=== PATIENT | female | born 1965 | race Caucasian/White ===

== ENCOUNTER 2018-06-05 11:35 | Emergency (ER) | payer BC, MEDICAID, OTHER ==
--- NOTE | 2018-06-05 12:21 | ED Physician Documentation ---
History of Present Illness - Stated complaint Stated Complaint: BILAT KNEE PX - Chief complaint Chief Complaint: Ext Problem - Additonal information Additional information: 53-year-old female presents the emergency department for evaluation of the left knee, ankle and foot pain. The patient fell one week ago striking her knee and twisting her ankle. The patient has been ambulatory but reports continuous pain. The patient denies injury to her head, neck, torso or upper extremities. Symptoms are described as mild. No other associated symptoms. Review of Systems Constitutional: denies: Fever Ears: denies: Ear pain Cardiac: denies: Chest pain / pressure GI: denies: Abdominal Pain Musculoskeletal: reports: Extremity pain, Joint pain. denies: Neck pain, Back pain Neurologic: denies: Headache, Head injury Immunocompromised: denies: Chemotherapy PD PAST MEDICAL HISTORY - Past Medical History Past Medical History: No - Past Surgical History Past Surgical History: Yes Ortho: Knee replacement - Allergies Allergies/Adverse Reactions: Allergies Allergy/AdvReac Type Severity Reaction Status Date / Time Penicillins Allergy Hives Verified 06/05/18 11:44 - Social History Does the pt smoke?: No Smoking Status: Never smoker Does the pt drink ETOH?: No - Immunizations Immunizations are current?: Yes PD ED PE NORMAL - General General: Alert and oriented X 3, No acute distress - HEENT HEENT: Atraumatic, PERRL, EOMI, Ears normal - Cardiac Cardiac: RRR - Respiratory Respiratory: No respiratory distress - Extremities Extremities: No deformity, Normal ROM s pain. No: No tenderness to palpate (The patient has tenderness to palpation of the left knee, there is an abrasion over the anterior portion of the knee, the patient has full active range of motion of the knee, no crepitus and no ligamentous instability. The patient has full active range of motion of the ankle and foot, there is tenderness to palpation, no crepitus. There is normal cap refill and a normal dorsalis pedis pulse) - Neuro Neuro: Alert and oriented X 3, Normal speech - Psych Psych: Normal affect Results - Vitals Vitals: Vital Signs - 24 hr 06/05/18 06/05/18 11:41 13:52 Temperature 35.7 C L Heart Rate 84 68 Respiratory 20 16 Rate Blood Pressure 133/79 H 122/78 O2 Saturation 100 98 - Rads (name of study) XR Knee/foot/ankle Radiology: Final report received (IMPRESSION: Mild degenerative joint disease.Slight lateral patellar subluxation. No acute abnormality. IMPRESSION: No acute osseous abnormality. Mild ankle swelling suggested) PD MEDICAL DECISION MAKING - ED course ED course: The patient has what appears to be a chronic subluxation of her kneecap, on discussing things further with the patient she had an issue with her right knee as well. The patient x-rays show no evidence of acute fracture. I discussed the findings with the patient who understands and agrees. I discussed follow-up with orthopedics for the chronic patellar subluxation. The patient agrees and understands. I discussed warning signs and recommended returning to the emergency department immediately for any worsening or any concerns. - Sepsis Event Vital Signs: Vital Signs - 24 hr 06/05/18 06/05/18 11:41 13:52 Temperature 35.7 C L Heart Rate 84 68 Respiratory 20 16 Rate Blood Pressure 133/79 H 122/78 O2 Saturation 100 98 Departure - Departure Disposition: 01 Home, Self Care Clinical Impression: Knee contusion Qualifiers: Encounter type: initial encounter Laterality: unspecified laterality Qualified Code(s): S80.00XA - Contusion of unspecified knee, initial encounter Ankle strain Qualifiers: Encounter type: initial encounter Laterality: unspecified laterality Qualified Code(s): S96.919A - Strain of unspecified muscle and tendon at ankle and foot level, unspecified foot, initial encounter Patellar subluxation Qualifiers: Encounter type: initial encounter Laterality: unspecified laterality Qualified Code(s): S83.003A - Unspecified subluxation of unspecified patella, initial encounter Condition: Good Instructions: ED Contusion Lower Extr Ch Follow-Up: Wilton Suazo MD [Provider Admit Priv/Credential] - (call to schedule a follow up appointment ) Comments: Please return to the emergency department immediately for worsening symptoms or any concerns. Please follow-up With orthopedic surgery for evaluation of your chronic patellar dislocation
[2018-06-05] MEDS ORDERED: TETANUS/DIPHTHERIA/PERTUSSIS 0.5 ML SYRINGE IM ONE (12:31)
--- NOTE | 2018-06-05 12:38 | XRAY Report ---
Reason: fall 1 week ago. Procedure Date: 06/05/2018 Accession Number: [id number] / [id number] Procedure: XR - Knee 3 View LT CPT Code: FULL RESULT: EXAM: LEFT KNEE RADIOGRAPHY 3 VIEWS EXAM DATE: 06/05/2018. CLINICAL HISTORY: Fell 1 week ago. COMPARISON: None. TECHNIQUE: AP, lateral and sunrise views. FINDINGS: Bones: No fracture or other acute abnormality. Small tibial spine osteophytes. Small posterior patellar osteophyte. Joints: Mild lateral patellar subluxation. Medial and lateral joint appeared normal. No effusion. Soft Tissues: Normal. No soft tissue swelling. IMPRESSION: Mild degenerative joint disease. Slight lateral patellar subluxation. No acute abnormality. RADIA
--- NOTE | 2018-06-05 13:14 | XRAY Report ---
Reason: ankle pain Procedure Date: 06/05/2018 Accession Number: [id number] / [id number] Procedure: XR - Ankle 3 View LT CPT Code: FULL RESULT: EXAM: LEFT ANKLE AND LEFT FOOT RADIOGRAPHY EXAM DATE: 06/05/2018 12:45 PM. CLINICAL HISTORY: Left ankle and foot pain. COMPARISON: FOOT 3 VIEW LT 06/05/2018 12:41 PM. TECHNIQUE: 3 views left ankle and 3 views left foot. FINDINGS: Bones: Normal. No fractures or bone lesions. Joints: Alignment is preserved. Some mild degenerative changes are seen at the proximal first intermetatarsal space. The remainder of the joint spaces appear intact. Soft Tissues: Mild soft tissue swelling is seen in the ankle region. No radiodense soft tissue abnormality is identified. IMPRESSION: No acute osseous abnormality. Mild ankle swelling suggested. RADIA
--- NOTE | 2018-06-05 13:14 | XRAY Report ---
Reason: foot pain Procedure Date: 06/05/2018 Accession Number: [id number] / [id number] Procedure: XR - Foot 3 View LT CPT Code: FULL RESULT: EXAM: LEFT ANKLE AND LEFT FOOT RADIOGRAPHY EXAM DATE: 06/05/2018 12:45 PM. CLINICAL HISTORY: Left ankle and foot pain. COMPARISON: FOOT 3 VIEW LT 06/05/2018 12:41 PM. TECHNIQUE: 3 views left ankle and 3 views left foot. FINDINGS: Bones: Normal. No fractures or bone lesions. Joints: Alignment is preserved. Some mild degenerative changes are seen at the proximal first intermetatarsal space. The remainder of the joint spaces appear intact. Soft Tissues: Mild soft tissue swelling is seen in the ankle region. No radiodense soft tissue abnormality is identified. IMPRESSION: No acute osseous abnormality. Mild ankle swelling suggested. RADIA
[2018-06-05 13:53] VITALS: BP 122/78
== END 2018-06-05 13:53 | disposition home or self-care (01) ==
LOC: ED 11:35
DX: S83.002A Unspecified subluxation of left patella, initial encounter (principal); S96.912A Strain of unspecified muscle and tendon at ankle and foot level, left foot, initial encounter; S80.00XA Contusion of unspecified knee, initial encounter; W18.30XA Fall on same level, unspecified, initial encounter; X50.1XXA Overexertion from prolonged static or awkward postures, initial encounter; W22.8XXA Striking against or struck by other objects, initial encounter; Y92.524 Gas station as the place of occurrence of the external cause
CPT/HCPCS: 90471; 99283

== ENCOUNTER 2018-08-28 14:46 | Outpatient (CLI) | payer MEDICAID ==
--- NOTE | 2018-09-03 10:44 | Mammography Report ---
Reason: SCREENING MAMMO Procedure Date: 08/28/2018 Accession Number: [id number] / [id number] Procedure: MGN - Screening Mammo Dig Bilat CPT Code: FULL RESULT: EXAM: Screening Mammo Dig Bilat DATE: 08/28/2018 3:12 PM CLINICAL HISTORY: Screening. No reported personal history of breast cancer. Family history breast cancer in mother at age 70. TECHNIQUE: Bilateral CC and MLO views were obtained. COMPARISON: Prior mammograms have been purged; new baseline mammogram. FINDINGS: The breasts demonstrate heterogeneously dense fibroglandular parenchyma bilaterally. Right breast: There are 2 contiguous masses of the posterior 3:00 breast with intervening asymmetry 10.5 cm from the nipple. The anterior portion mass shows irregular shape with spiculated margins; the posterior mass is oval in shape, but incompletely included. Total span of visible masses 45 x 22 x 13 mm. There are no suspicious calcifications. Left breast: There are no suspicious masses, calcifications or areas of distortion. IMPRESSION: Incomplete examination RECOMMENDATION: Additional imaging including ultrasound of the right breast and axilla. BI-RADS CATEGORY 0: Incomplete examination STANDARD QUALIFYING STATEMENTS: 1. This examination was reviewed with the aid of Computer-Aided Detection (CAD). 2. A negative or benign imaging report should not preclude biopsy if clinically suspicious findings are present. 3. Dense breasts may obscure an underlying neoplasm. 4. This examination was reviewed without the aid of 3D breast imaging (tomosynthesis).
== END 2018-08-28 14:47 | disposition home or self-care (01) ==
LOC: DI.N 14:46
PROVIDERS: ATTEND Physician Assistant Medical
DX: Z12.31 Encounter for screening mammogram for malignant neoplasm of breast (principal); Z80.3 Family history of malignant neoplasm of breast
CPT/HCPCS: 77067

== ENCOUNTER 2018-12-05 08:28 | Outpatient (CLI) | payer MEDICAID ==
--- NOTE | 2018-12-05 13:13 | Mammography Report ---
Reason: ABNORMAL MAMMOGRAM,RIGHT BREAST Procedure Date: 12/05/2018 Accession Number: [id number] / [id number] Procedure: DC - Diag Special Views Dig RT CPT Code: FULL RESULT: EXAM: Diag Special Views Dig RT, Breast Unilateral Limited DATE: 12/05/2018 9:31 AM CLINICAL HISTORY: Recall from recent screening exam for right breast mass. Family history breast cancer mother age 72. TECHNIQUE: Right CC and MLO spot compression. 90 degree lateral 2-D/3-D. Real-time ultrasound was also performed. COMPARISON: Baseline screening 08/28/2018 FINDINGS: The breast demonstrates scattered fibroglandular densities. Right breast: Additional images confirm two adjacent high density masses in the posterior upper inner right breast at approximately 2:00 - 3:00 11 cm from the nipple. There are no associated calcifications. The anterior mass shows irregular contour with spiculated margins and measures 22 x 12 x 16 mm. The posterior mass is more oval in contour and cannot be fully included on mammographic images. There is a thin bridge of tissue which connects the 2 masses; total extent of both masses mammographically is 37 x 12 x 16 mm (AP x SI x ML). Targeted ultrasound demonstrates 2 adjacent hypoechoic non-circumscribed masses corresponding to the mammographic masses at 2:00, 10 cm from the nipple. Masses are by 5 mm sonographically. Maximal edge to edge extent at ultrasound is 39 mm; individual masses measure 18 and 16 mm by US. Survey of the axilla shows only normal morphology lymph nodes. IMPRESSION: Right breast: 2 adjacent/contiguous high suspicion masses posterior medial right breast as described. Highly suspicious of malignancy. BI-RADS Category 5. Ultrasound-guided needle biopsy and marker placement is recommended. Biopsy scheduling was facilitated the time of this imaging appointment. BI-RADS CATEGORY 5: Highly suggestive of malignancy. STANDARD QUALIFYING STATEMENTS: 1. This examination was not reviewed with the aid of Computer-Aided Detection (CAD). 2. A negative or benign imaging report should not preclude biopsy if clinically suspicious findings are present. 3. Dense breasts may obscure an underlying neoplasm. 4. This examination was reviewed with the aid of 3D breast imaging (tomosynthesis).
== END 2018-12-05 08:29 | disposition home or self-care (01) ==
LOC: DI 08:28
PROVIDERS: ATTEND Physician Assistant Medical
DX: N63.10 Unspecified lump in the right breast, unspecified quadrant (principal); R92.8 Other abnormal and inconclusive findings on diagnostic imaging of breast
CPT/HCPCS: 76642

== ENCOUNTER 2018-12-12 11:44 | Outpatient (CLI) | payer MEDICAID ==
[2018-12-12] MEDS ORDERED: BUPIVACAINE 0.5%-EPI 1:200000 PF 10 ML VIAL ONE (11:55)
[2018-12-12] MEDS ORDERED: BUFFERED LIDOCAINE 10 ML SYRINGE ONE (11:56)
--- NOTE | 2018-12-12 14:25 | Mammography Report ---
Reason: ABN MAMMO - RT BREAST MASS Procedure Date: 12/12/2018 Accession Number: [id number] / [id number] Procedure: DC - Diagnostic Dig RT CPT Code: FULL RESULT: PROCEDURE: Ultrasound-guided needle biopsy right breast mass. CLINICAL DATA: Targeted mass measuring 3.7 cm with irregular margins in the 2 o'clock axis of the right breast. Informed consent was obtained. Using standard aseptic technique, both 1% buffered lidocaine and Sensorcaine were injected into the right breast for local anesthesia. A small agustin was made in the skin with a #11 blade. A 12-gauge [facility] vacuum-assisted device was used to obtain 4 specimens. A specialized biopsy marker clip was placed into the biopsy cavity under ultrasound guidance. The patient was taken to separate mammography machine and a two-view digital mammography was performed to verify the clip placement and any complications. The mammography showed concordant clip placement. The wound was dressed and ice applied. The patient was observed for approximately 15 minutes, then was discharged from diagnostic imaging Department in good condition following instructions on wound care and obtaining biopsy results. The patient is scheduled to receive the biopsy results from the referring physician. The tissue was sent for histologic analysis. IMPRESSION: Ultrasound-guided biopsy of the right breast. AN ADDENDUM WILL BE MADE TO THIS REPORT WHEN PATHOLOGY IS REVIEWED TO ESTABLISH CONCORDANCE.
[2018-12-12] MEDS ORDERED: BUFFERED LIDOCAINE 10 ML SYRINGE IU ONE (17:16)
[2018-12-12] MEDS ORDERED: BUPIVACAINE 0.5%-EPI 1:200000 PF 10 ML VIAL SUBQ ONE (17:16)
--- NOTE | 2018-12-17 11:05 | Ultrasound Report ---
Reason: ABN MAMMO - RT BREAST MASS Procedure Date: 12/12/2018 Accession Number: [id number] / [id number] Procedure: US - Biopsy Breast Core CPT Code: FULL RESULT: Hallett: Shakir Mark Sign-Off: Shakir Mark Reason: ABN MAMMO - RT BREAST MASS Procedure Date: 12/12/2018 Accession Number: [id number] / [id number] Procedure: DC - Diagnostic Dig RT CPT Code: FULL RESULT: PROCEDURE: Ultrasound-guided needle biopsy right breast mass. CLINICAL DATA: Targeted mass measuring 3.7 cm with irregular margins in the 2 o'clock axis of the right breast. Informed consent was obtained. Using standard aseptic technique, both 1% buffered lidocaine and Sensorcaine were injected into the right breast for local anesthesia. A small agustin was made in the skin with a #11 blade. A 12-gauge [employer] vacuum-assisted device was used to obtain 4 specimens. A specialized biopsy marker clip was placed into the biopsy cavity under ultrasound guidance. The patient was taken to separate mammography machine and a two-view digital mammography was performed to verify the clip placement and any complications. The mammography showed concordant clip placement. The wound was dressed and ice applied. The patient was observed for approximately 15 minutes, then was discharged from diagnostic imaging Department in good condition following instructions on wound care and obtaining biopsy results. The patient is scheduled to receive the biopsy results from the referring physician. The tissue was sent for histologic analysis. IMPRESSION: Ultrasound-guided biopsy of the right breast. AN ADDENDUM WILL BE MADE TO THIS REPORT WHEN PATHOLOGY IS REVIEWED TO ESTABLISH CONCORDANCE.
== END 2018-12-12 11:45 | disposition home or self-care (01) ==
LOC: DI 11:44
PROVIDERS: ATTEND Physician Assistant Medical
DX: C50.911 Malignant neoplasm of unspecified site of right female breast (principal); Z17.0 Estrogen receptor positive status [ER+]
CPT/HCPCS: 19083

== ENCOUNTER 2018-12-31 07:44 | Day surgery (SDC) | payer MEDICAID ==
[2018-12-31] MEDS ORDERED: BUFFERED LIDOCAINE 10 ML SYRINGE ONE (09:11)
[2018-12-31] MEDS ORDERED: LACTATED RINGERS 1,000 ML IV ONE ×3 (10:23→17:57)
[2018-12-31] MEDS ORDERED: BUPIVACAINE 0.5% PF 30 ML VIAL ONE (10:32)
--- NOTE | 2018-12-31 13:23 | ANESTHESIA ---
Pre-Anesthesia VS, & Labs - Diagnosis R breast CA/desire foe L mastectomy - Procedure B Mastectomy Simple/ R sentinel node biopsy Vital Signs: Temp Pulse Resp BP Pulse Ox 36.6 C 73 18 149/94 H 97 12/31/18 08:06 12/31/18 08:06 12/31/18 08:06 12/31/18 08:06 12/31/18 08:06 Height 5 ft 9 in Weight (kg) 126.9 kg Body Mass Index 39.9 - NPO >8 hours - Is Patient ?: No Home Medications and Allergies Home Medications: Ambulatory Orders DULoxetine [Cymbalta] 2 mg PO QPM 12/26/18 Zolpidem [Ambien] 5 mg PO HS 12/26/18 DULoxetine [Cymbalta] 2 mg PO QPM 12/26/18 Zolpidem [Ambien] 5 mg PO HS 12/26/18 Allergies/Adverse Reactions: Allergies Allergy/AdvReac Type Severity Reaction Status Date / Time erythromycin base Allergy Hives Verified 12/31/18 08:32 Penicillins Allergy Hives Verified 06/05/18 11:44 vitamins Allergy Nausea Uncoded 12/31/18 08:21 Anes History & Medical History - Anesthetic History Anesthesia Complications: reports: No previous complications Family history of Anesthesia Complications: Denies Family history of Malignant Hyperthermia: Denies - Medical History Cardiovascular: reports: None Pulmonary: reports: None Gastrointestinal: reports: None Urinary: reports: None Musculoskeletal: reports: Osteoarthritis Endocrine/Autoimmune: reports: HyPOthyroidism Skin: reports: None Smoking Status: Never smoker - Surgical History General: Cholecystectomy Gynecologic: section Orthopedic: Arthroscopic surgery Exam General: Alert, Oriented x3, Cooperative Dental: Loose/Frag (#8 missing, several others chipped, broken. (poor dentition)) Mouth Openin Fingerbreadth Neck Mobility: Normal Mallampati classification: II Respiratory: Lungs clear, Normal breath sounds Cardiovascular: Regular rate Neurological: Normal speech Mental/Cognitive Status: Alert/Oriented X3 Cognitive Status: Within normal limits Plan Anesthesia Type: General Consent for Procedure(s) Verified and Reviewed: Yes Code Status: Attempt Resuscitation ASA classification: 2-Mild systemic disease Is this case an emergency?: No
[2018-12-31] MEDS ORDERED: BUPIVACAINE 0.5% PF 30 ML VIAL SUBQ ONE (14:00)
[2018-12-31] MEDS ORDERED: METHYLENE BLUE 0.5% 50 MG/10 ML AMPULE ONE (15:16)
[2018-12-31] MEDS ORDERED: SUCCINYLCHOLINE 200 MG/10 ML VIAL IVP ONE (16:00)
[2018-12-31] MEDS ORDERED: fentaNYL 100 MCG/2 ML VIAL IVP ONE (16:00)
[2018-12-31] MEDS ORDERED: DEXAMETHASONE 4 MG/ML VIAL IVP ONE (16:00)
[2018-12-31] MEDS ORDERED: KETOROLAC 30 MG/ML VIAL IVP ONE (16:00)
[2018-12-31] MEDS ORDERED: ACETAMINOPHEN 1,000 MG/100 ML VIAL IV ONE (16:00)
[2018-12-31] MEDS ORDERED: ONDANSETRON 4 MG/2 ML VIAL IVP ONE (16:00)
[2018-12-31] MEDS ORDERED: MIDAZOLAM 2 MG/2 ML VIAL IVP ONE (16:00)
[2018-12-31] MEDS ORDERED: PROPOFOL 200 MG/20 ML VIAL IVP ONE (16:00)
--- NOTE | 2018-12-31 17:48 | OPERATIVE REPORT ---
Operative Report - General Planned Procedure: LEFT mastectomy (patient preference/desire), RIGHT mastectomy (cancer), RIGHT sentinel lymph node biopsy (axilla) Pre-Op Diagnosis: RIGHT breast cancer Procedure Performed: BILATERAL mastectomy, RIGHT sentinel lymph node biopsy (axilla) Post Op Diagnosis: Same - Procedure Note Primary Surgeon: Vinicius Haas MD Anesthesia Provider: Kendrick Thakkar CRNA Anesthesia Technique: General ET tube, Local (30 mL 1/2% marcaine) IV Fluids (mL): 1,300 Estimated Blood Loss (mL): 50 Drain/Tube Type: Osbaldo drain (19 Fr bilaterally in anterior axillary space coming across chest wall) Complications: None. - Other Other Information/Narrative: OPERATIVE DESCRIPTION/REPORT: After verbal and written informed consent was obtained detailing the risks of infection, bleeding requiring transfusion with its risks, nerve injury, and , and after I met with the patient confirming the surgery and the site of the surgery and after initialing the RIGHT axilla with a surgical marker, the patient was brought to the operative suite and placed supine on the operating table. Great care was taken to avoid pressure points to prevent pressure necrosis or nerve injury. Monitoring devices were applied along with TEDs and pneumatic compressive stockings (to prevent DVT). The patient received preoperative antibiotics for surgical prophylaxis. Kendrick Thakkar CRNA sedated and anesthetized the patient for the entire procedure. The patient was prepped and draped in the usual sterile manner. With the patient draped my initials were clearly visible. A "time in" then confirmed that the patient was identified with 3 identifiers (name, date and medical record number), the history and physical was in the chart, the signed consent confirming the procedure was in the chart, the patient was in the correct position, the aforementioned prophylactic measures were in place or given, we had the correct personnel and equipment to complete the procedure and that anesthesia, surgery and nursing were given an opportunity to express any concerns. With the agreement of everyone in the room, we proceeded with the operation. Great care was taken to ensure that the arms were placed in a relaxed manner away from the body to facilitate exposure and to avoid nerve injury. Prior to starting with the surgery the RIGHT periareolar area was injected with 5 mL of methylene blue subcutaneously in the breast was massaged to get the dye to be absorbed into the lymphatics. I started on the left-hand side is a side did not have the breast cancer. An elliptical incision was made to incorporate the nipple-areolar complex. The skin incision was carried down to the subcutaneous fat, but no further. Using traction and counter traction, the upper flap was dissected from the chest wall, medially to the sternal border, superiorly to the clavicle, laterally to the anterior border of the latissimus dorsi muscle, and superolaterally to the insertion of the pectoralis major muscle. The lower flap was dissected in a similar manner down to the insertion of the pectoralis fascia overlying the fifth rib medially and laterally out to the latissimus dorsi. Bovie electrocautery was used for the majority of the dissection and hemostasis, tying only the large vessels with 2-0 Vicryl. The breast was dissected from the pectoralis muscle beginning medially and progressing laterally, removing the pectoralis fascia entirely. Once the lateral border of the pectoralis major muscle was identified, the pectoralis muscle was retracted medially and the interpectoral fat was removed with the specimen. The specimen was then marked with a short stitch superiorly and a long stitch laterally. This was sent to pathology for evaluation. The wound was then copiously irrigated using warm maine rile water. A Osbaldo drain was inserted through a separate stab incision below and lateral to the initial incision and the drain was directed across the anterior chest wall. The drain was secured to the skin using a 3-0 nylon which was Grant sandaled about the drain. The subcutaneous tissue was approximated using interrupted 2-0 Vicryl sutures. The skin was approximated using a running 4-0 Monocryl subcuticular stitch. The drain was placed to grenade suction. The left hand side was then draped off so that there would be no exposure of the left wound to the right sided dissection. I turned my attention to the right-hand side which is the side with the breast cancer. The right side was dissected in exactly the same manner as the left hand side with the only exception being that posteriorly there was some hard tissue that was growing into the pectoralis major muscle and this was resected separately and sent to pathology separately for evaluation. The breast was marked similarly with a short stitch superiorly and a long stitch laterally. I turned my attention to the dissection of the sentinel lymph node. None of the lymph nodes were blue. Only one lymph node demonstrated significant radioactive activity but this lymph node was not blue. This lymph node was excised and sent for pathologic evaluation. In vivo and ex vivo activity of this lymph node was almost exactly similar. Please refer to the chart for the exact numbers. Extensive evaluation of the patient's axilla failed to reveal any other lymph node that was even remotely close to the initial lymph node in activity. Copious water lavage was used to remove any debris, and meticulous hemostasis was obtained with Bovie electrocautery. Again, a 19 Turkish Osbalod drain was placed in a similar fashion on the side. In a similar manner the right mastectomy incision was closed using 2-0 Vicryl sutures in an interrupted fashion for the subcutaneous tissues and a 4-0 Monocryl running subcuticular stitch to close the skin. Dressings with minimal tape as well as a breast binder were applied. At this point a time out was performed that confirmed that all the counts were correct, the procedure that was performed, the blood loss, the urine output, the IV fluids administered, and the patients condition. Having tolerated the procedure well, the patient was subsequently extubated and taken to recovery room in good and stable condition. [employer] disclaimer: This document was created in part using voice recognition technology. Because of the inherent limitations of the system ([employer] user manual states that the licensee understands that speech recognition is a statistical process and that recognition errors are inherent in the process), occasional same sounding word substitutions and grammatical errors do occur and persist despite proofreading. Please read this document for context.
[2018-12-31] MEDS ORDERED: ONDANSETRON 4 MG/2 ML VIAL IVP PRN (17:52)
[2018-12-31] MEDS ORDERED: HYDROmorphone 0.5 MG/0.5 ML SYRINGE IVP PRN (17:52)
[2018-12-31] MEDS ORDERED: HYDROcod/ACETAM 5/325 MG TABLET PO PRN (17:52)
[2018-12-31] MEDS ORDERED: ACETAMINOPHEN 1,000 MG/100 ML 100 ML IV ONE (18:30)
[2018-12-31] MEDS ORDERED: D5NS W/20 MEQ KCL 1,000 ML IV SCH (21:00)
[2019-01-01 08:20] VITALS: BP 114/49
[2019-01-01] MEDS ORDERED: HYDROcod/ACETAM 5/325 MG TABLET PO PRN (08:41)
[2019-01-01] MEDS ORDERED: DULoxetine 30 MG CAPSULE PO SCH (21:00)
[2019-01-01] MEDS ORDERED: ZOLPIDEM 5 MG TABLET PO SCH (21:00)
== END 2019-01-01 11:00 | disposition home or self-care (01) ==
LOC: DI 07:44 → MS2 19:07 → DI 01-01 11:00
PROVIDERS: ATTEND Surgery
PROC: 0KBH0ZX Excision of Right Thorax Muscle, Open Approach, Diagnostic (ICD-10-PCS; 2018-12-31)
PROC: 0HBV0ZZ Excision of Bilateral Breast, Open Approach (ICD-10-PCS; principal; 2018-12-31 11:00)
PROC: 07B50ZX Excision of Right Axillary Lymphatic, Open Approach, Diagnostic (ICD-10-PCS; 2018-12-31 11:00)
DX: C50.411 Malignant neoplasm of upper-outer quadrant of right female breast (principal); Z17.0 Estrogen receptor positive status [ER+]; C79.89 Secondary malignant neoplasm of other specified sites; Z40.01 Encounter for prophylactic removal of breast; E66.01 Morbid (severe) obesity due to excess calories; Z68.41 Body mass index [BMI] 40.0-44.9, adult; M19.90 Unspecified osteoarthritis, unspecified site
CPT/HCPCS: 19303; 19307; 20205; 78195; A9270; J0131; J0330; J1170; J7120

== ENCOUNTER 2019-02-04 09:24 | Day surgery (SDC) | payer MEDICAID ==
[2019-02-04] MEDS ORDERED: LACTATED RINGERS 1,000 ML IV ONE (10:00)
[2019-02-04] MEDS ORDERED: CEFAZOLIN SODIUM IN 0.9 % NACL 2 GM/100 ML BAG IV ONE (10:14)
--- NOTE | 2019-02-04 10:22 | ANESTHESIA ---
Pre-Anesthesia VS, & Labs - Diagnosis Right pectoralis major implant breast cancer - Procedure Excision of right pectoralis major implant Vital Signs: Temp Pulse Resp BP Pulse Ox 36.6 C 85 18 169/102 H 95 02/04/19 09:30 02/04/19 09:30 02/04/19 09:30 02/04/19 09:30 02/04/19 09:30 Height 5 ft 9 in Weight (kg) 126.4 kg Body Mass Index 41.2 - NPO >8 hours - Is Patient ?: No - Lab Results Lab results reviewed: Yes Home Medications and Allergies DULoxetine [Cymbalta] 30 mg PO BID 12/26/18 Zolpidem [Ambien] 5 mg PO HS 12/26/18 Anastrozole 1 tab PO DAILY 01/21/19 Allergies/Adverse Reactions: Allergies Allergy/AdvReac Type Severity Reaction Status Date / Time erythromycin base Allergy Hives Verified 01/21/19 14:24 Penicillins Allergy Hives Verified 01/21/19 14:24 Anes History & Medical History - Anesthetic History Anesthesia Complications: reports: No previous complications Family history of Anesthesia Complications: Denies Family history of Malignant Hyperthermia: Denies - Medical History Cardiovascular: reports: None Pulmonary: reports: None Gastrointestinal: reports: None Urinary: reports: None Neuro: reports: None Musculoskeletal: reports: Osteoarthritis Endocrine/Autoimmune: reports: HyPOthyroidism Blood Disorders: reports: None Skin: reports: None Smoking Status: Never smoker Psychosocial: reports: No issues indicated - Surgical History General: Cholecystectomy Gynecologic: section Orthopedic: Arthroscopic surgery Exam General: Alert, Cooperative Dental: WNL, Other (missing front right) Mouth Opening: Greater than 4 Fingerbreadths Neck Mobility: Normal Mallampati classification: II Thyromental Distance: greater than 6 cm Respiratory: Lungs clear Cardiovascular: Regular rate Neurological: Normal speech Mental/Cognitive Status: Alert/Oriented X3 Cognitive Status: Within normal limits Plan Anesthesia Type: General Consent for Procedure(s) Verified and Reviewed: Yes Code Status: Attempt Resuscitation ASA classification: 2-Mild systemic disease Is this case an emergency?: No
[2019-02-04] MEDS ORDERED: BUPIVACAINE 0.5% PF 30 ML VIAL INFIL ONE (12:33)
[2019-02-04] MEDS ORDERED: KETOROLAC 30 MG/ML VIAL IVP ONE (13:00)
[2019-02-04] MEDS ORDERED: ONDANSETRON 4 MG/2 ML VIAL IVP ONE (13:00)
[2019-02-04] MEDS ORDERED: PROPOFOL 200 MG/20 ML VIAL IVP ONE (13:00)
[2019-02-04] MEDS ORDERED: DEXAMETHASONE 4 MG/ML VIAL IVP ONE (13:00)
[2019-02-04] MEDS ORDERED: fentaNYL 100 MCG/2 ML VIAL IVP ONE (13:00)
[2019-02-04] MEDS ORDERED: LIDOCAINE-MPF 2% 5 ML VIAL IM ONE (13:00)
[2019-02-04] MEDS ORDERED: MIDAZOLAM 2 MG/2 ML VIAL IVP ONE (13:00)
--- NOTE | 2019-02-04 13:13 | OPERATIVE REPORT ---
Operative Report - General Procedure Date: 02/04/19 Planned Procedure: Excision of breast cancer implant from right pectoralis major muscle Pre-Op Diagnosis: Right pectoralis major muscle breast cancer implant Procedure Performed: Excision of breast cancer implant from right pectoralis major muscle Post Op Diagnosis: Same - Procedure Note Primary Surgeon: Vinicius Haas MD Anesthesia Provider: Aramis Brown CRNA then Kendrick Thakkar CRNA Anesthesia Technique: General LMA, Local (30 mL of half percent Marcaine) IV Fluids (mL): 700 Estimated Blood Loss (mL): 10 Drain/Tube Type: Other (None.) Complications: None. - Other Other Information/Narrative: OPERATIVE DESCRIPTION/REPORT: After verbal and written informed consent was obtained detailing the risks of infection, bleeding requiring transfusion with its risks, nerve injury, and , and after I met with the patient confirming the surgery and the site of the surgery, the patient was brought to the operative suite and placed supine on the operating table. I had initialed the operative site with the cooperation of the patient. Great care was taken to avoid pressure points to prevent pressure necrosis or nerve injury. Monitoring devices were applied along with TEDs and pneumatic compressive stockings (to prevent DVT). The patient received preoperative antibiotics for surgical prophylaxis. Aramis Brown CRNA sedated and anesthetized the patient for the procedure, but towards the end of the procedure Kendrick Thakkar CRNA took over. The patient was prepped and draped in the usual sterile manner. A "time in" then confirmed that the patient was identified with 3 identifiers (name, date and medical record number), the history and physical was in the chart, the signed consent confirming the procedure was in the chart, the patient was in the correct position, the aforementioned prophylactic measures were in place or given, we had the correct personnel and equipment to complete the procedure and that anesthesia, surgery and nursing were given an opportunity to express any concerns. With the agreement of everyone in the room, we proceeded with the operation. The skin incision traced the previous incision for approximately one third of its length. Dissection down to the pectoralis major muscle was performed using Bovie electrocautery. Once the previous pectoralis major biopsy site was identi fied, every attempt was made to get a 1 cm margin around this area. The pectoralis major muscle was excised all the way down to the rib cage. The entire muscle was not excised. Above and below the excision site of the muscle was left intact. Please note that the specimen was marked with a long stitch laterally, a short stitch superiorly, and a double stitch deep. Meticulous hemostasis was obtained using Bovie electrocautery. The subcutaneous tissue were approximated using a 3-0 Vicryl in an interrupted manner, and the skin incision was approximated with 4-0 Monocryl in a subcuticular fashion. The incision and subcutaneous tissues were injected using 30 mL of half percent Marcaine for long-term anesthetic control. The prep was washed off and benzoin and steristrips were placed on the incision. At this point a time out was performed that confirmed that all the counts were correct, the procedure that was performed, the blood loss, the urine output, the IV fluids administered, and the patients condition. Dressings were applied. Having tolerated the procedure well, the patient was subsequently extubated and taken to recovery room in good and stable condition. Dragon disclaimer: This document was created in part using voice recognition technology. Because of the inherent limitations of the system ([employer] Dict[employer] user manual states that the licensee understands that speech recognition is a statistical process and that recognition errors are inherent in the process), occasional same sounding word substitutions and grammatical errors do occur and persist despite proofreading. Please read this document for context.
[2019-02-04] MEDS ORDERED: HYDROmorphone 0.5 MG/0.5 ML SYRINGE IVP PRN (13:25)
[2019-02-04] MEDS ORDERED: ONDANSETRON 4 MG/2 ML VIAL IVP PRN (13:25)
[2019-02-04] MEDS ORDERED: HYDROcod/ACETAM 5/325 MG TABLET PO PRN (13:25)
[2019-02-04] MEDS ORDERED: HYDROcod/ACETAM 5/325 MG TABLET ONE (14:02)
[2019-02-04 14:28] VITALS: BP 153/88
== END 2019-02-04 09:25 | disposition home or self-care (01) ==
LOC: SDS 09:24
PROVIDERS: ATTEND Surgery
PROC: 0KBH0ZZ Excision of Right Thorax Muscle, Open Approach (ICD-10-PCS; principal; 2019-02-04 11:00)
DX: C79.81 Secondary malignant neoplasm of breast (principal); E66.9 Obesity, unspecified; Z68.41 Body mass index [BMI] 40.0-44.9, adult
CPT/HCPCS: 21554; A9270; J0690; J7120

== ENCOUNTER 2019-02-18 11:50 | Outpatient (CLI) | payer MEDICAID ==
[2019-02-18] MEDS ORDERED: IOVERSOL 320 100 ML VIAL IVP ONE ×2 (12:07→17:17)
[2019-02-18] MEDS ORDERED: IOVERSOL 320 50 ML VIAL ONE (12:07)
--- NOTE | 2019-02-18 14:53 | CT Report ---
Reason: BREAST CANCER Procedure Date: 02/18/2019 Accession Number: [id number] / [id number] Procedure: CT - Abdomen/Pelvis W CPT Code: FULL RESULT: EXAM: CT CHEST, ABDOMEN AND PELVIS EXAM DATE: 02/18/2019 01:40 PM. CLINICAL HISTORY: Breast cancer. COMPARISONS: CHEST W/ 02/18/2019 1:30 PM. TECHNIQUE: Routine helical CT imaging was performed through the chest, abdomen, and pelvis. IV contrast: 100 mL Optiray 320. Enteric contrast: Yes. Reconstructions: Coronal and sagittal. In accordance with CT protocol optimization, one or more of the following dose reduction techniques were utilized for this exam: automated exposure control, adjustment of mA and/or KV based on patient size, or use of iterative reconstructive technique. FINDINGS: Lungs/Pleura: Minimally nodular appearance of the posterior right pleura, favor dependent changes. No suspicious pulmonary nodules, bronchial thickening, consolidation, or edema. Pulmonary vasculature is normal. No effusions or pneumothorax. Mediastinum: There is no mediastinal or hilar lymphadenopathy. Musculoskeletal thorax: The patient is status post bilateral mastectomy with 8.6 x 4.3 cm fluid collection in the right mastectomy bed which also contains locules of gas as well as a hyperdense or enhancing nodule inferiorly as seen on image 28 series 2 which measures 2.0 x 1.2 cm. There is no axillary lymphadenopathy. A prominent right internal mammary lymph node is seen on image 16 series 2, image 52 of series 6, which measures 0.7 cm in short axis. Liver: Normal. Gallbladder/Bile Ducts: Status post cholecystectomy. Spleen: Spleen is top normal for size, 13.4 cm. Pancreas: Normal. Adrenal Glands: Normal. Kidneys: Normal. No masses or hydronephrosis. Peritoneal Cavity/Bowel: Normal. No free fluid, free air or adenopathy. No masses or acute inflammatory process. Pelvic Organs: Normal. The bladder and visualized pelvic organs are within normal limits. Vasculature: No aneurysms or other significant abnormality. Bones: No significant abnormality. Other: None. IMPRESSION: Right chest wall collection containing gas and hyperdense material status post mastectomy. Prominent right internal mammary lymph node as described. No evidence of metastatic disease to the abdomen or pelvis. [facility] The call report notification system was initiated by Dr. Shakir Mark at 02:39 PM on 02/18/2019. ADDENDUM: 02/18/19 15:08 The above call report findings were discussed with Krunal Hanson by Dr. Shakir Mark at 03:08 PM on 02/18/2019.
[2019-02-18] MEDS ORDERED: IOVERSOL 320 50 ML VIAL PO ONE (17:17)
--- NOTE | 2019-02-19 13:59 | Nuclear Medicine Report ---
Reason: BREAST CANCER Procedure Date: 02/18/2019 Accession Number: [id number] / [id number] Procedure: NM - Bone Whole Body CPT Code: FULL RESULT: EXAM: BONE SCAN EXAM DATE: 02/18/2019 03:43 PM. CLINICAL HISTORY: BREAST CANCER. COMPARISON: ABDOMEN/PELVIS W02/18/2019 1:30 PM CHEST W02/18/2019 1:30 PM. TECHNIQUE: Following the intravenous administration of 31.1 mCi of technetium 99m MDP and an appropriate delay, a whole-body scan was performed in anterior and posterior projections. FINDINGS: Exam Quality: Normal overall osseous radiotracer uptake. Physiological tracer uptake in bilateral collecting systems. Skull: No focal uptake. Thorax: No focal lesions in ribs or sternum. Pelvis: No focal lesions. Spine: No focal uptake in the cervical or thoracic or lumbar spine. Extremities: There are foci of increased uptake in the medial right knee, in the left ankle, and in the bilateral mid feet which are most likely degenerative or could be posttraumatic. IMPRESSION: No scintigraphic findings highly concerning for skeletal metastatic disease. RAD[facility]
== END 2019-02-18 11:51 | disposition home or self-care (01) ==
LOC: DI 11:50
PROVIDERS: ATTEND Internal Medicine Hematology & Oncology
DX: C50.911 Malignant neoplasm of unspecified site of right female breast (principal); R59.0 Localized enlarged lymph nodes; Z90.13 Acquired absence of bilateral breasts and nipples
CPT/HCPCS: 71260; 74177; 78306; Q9967

== ENCOUNTER 2019-09-19 11:59 | Outpatient (CLI) | payer OTHER ==
[2019-09-19] MEDS ORDERED: GADOBUTROL 15 MMOL/15 ML VIAL ONE (13:01)
== END 2019-09-19 12:00 | disposition home or self-care (01) ==
LOC: DI 11:59
PROVIDERS: ATTEND Surgery
DX: Z53.9 Procedure and treatment not carried out, unspecified reason (principal)

== ENCOUNTER 2019-12-19 20:30 | Outpatient (CLI) | payer OTHER | END 2019-12-19 20:31 | disposition short-term general hospital (02) | LOC: EMS 20:30 | PROVIDERS: ATTEND Surgery | DX: S99.911A Unspecified injury of right ankle, initial encounter (principal); W10.8XXA Fall (on) (from) other stairs and steps, initial encounter; Y92.009 Unspecified place in unspecified non-institutional (private) residence as the place of occurrence of the external cause | CPT/HCPCS: A0425; A0427 ==

== ENCOUNTER 2020-01-21 11:22 | Outpatient (CLI) | payer SELFPAY ==
[2020-01-21 13:31] LABS: BASOPHILS % (AUTO) 0.7 %; EOSINOPHILS # (AUTO) 0.1 10^3/uL (0.0-0.7); EOSINOPHILS % (AUTO) 2.1 %; HGB - HEMOGLOBIN 12.4 g/dL (12.0-16.0); LYMPHOCYTES # (AUTO) 1.7 10^3/uL (1.5-3.5); LYMPHOCYTES % (AUTO) 30.1 %; MEAN CORPUSCULAR HEMOGLOBIN 29.8 pg (27.0-31.0); MEAN CORPUSCULAR HGB CONC 33.2 g/dL (32.0-36.0); MEAN CORPUSCULAR VOLUME 89.9 fL (81.0-99.0); MEAN PLATELET VOLUME 10.4 fL (7.9-10.8); MONOCYTES # (AUTO) 0.3 10^3/uL (0.0-1.0); MONOCYTES % (AUTO) 5.1 %; NEUTROPHILS # (AUTO) 3.5 10^3/uL (1.5-6.6); NEUTROPHILS % (AUTO) 61.7 %; PLT - PLATELET COUNT 283 10^3/uL (130-450); RED BLOOD COUNT 4.16 10^6/uL (4.20-5.40); RED CELL DISTRIBUTION WIDTH 13.5 % (12.0-15.0); WHITE BLOOD COUNT 5.7 x10^3/uL (4.8-10.8)
[2020-01-21 13:59] LABS: CALCIUM 9.4 mg/dL (8.5-10.3); CREATININE 0.8 mg/dL (0.4-1.0)
== END 2020-01-21 23:59 | disposition home or self-care (01) ==
LOC: LAB.WCP 11:22
PROVIDERS: ATTEND Physician Assistant Medical
DX: N95.1 Menopausal and female climacteric states (principal)
CPT/HCPCS: 36415; 80048; 84443; 85025

== ENCOUNTER 2020-03-30 13:03 | Outpatient (CLI) | payer OTHER ==
--- NOTE | 2020-03-30 14:04 | SLEEP CARE CONSULTATION ---
Information from patient questionnaire entered by Nae Wolf. I have reviewed and concur with the information entered by Nae Wolf. This document represents the service I personally performed and the decisions made by me, Nir Pereira MD, [facility]. History of Present Illness Service Date and Time: 03/30/2020 1303 Reason for Visit: New patient Chief Complaint: reports: Insomnia, Excessive daytime sleepiness Duration of Symptoms: 5 MONTHS Usual bedtime: 2300 Time it takes to fall asleep: 3 hours Snores at night: No Observed to quit breathing while asleep: No Sleeps alone due to snoring: No Number of times waking at night: 3 Reasons for waking at night: reports: Bathroom Toss, Turn, or Twitch while sleeping: Yes Recalls having dreams: No Usually gets out of bed at: 1500 Feels refreshed in the morning: No Morning headache: Yes Sleepy or fatigued during the day: Yes Ever fallen asleep while driving: No Takes day naps: Yes Dreams during day naps: Yes Prior sleep studies: No Additional HPI information: I had the pleasure of seeing Ms. Molina today regarding the possibility of her having a sleep disorder. As you know, she is a 55 year old lady who complains of insomnia for the past 5 months. She goes to bed at 11 pm and it takes her hours to fall asleep. She usually falls asleep around 4 6 am. She does not get out of bed until 2 3 pm. While asleep she snores. She has never been told that she quits breathing while asleep. However, she sleeps alone. She is sleepy during the day with an Brimson Sleepiness Scale score is of 15. Subjective Initial Brimson Sleepiness Scale score: 15 Past Medical History Past Medical History: reports: Arthritis, Other (Breast cancer, ankle surgery) Social History The patient's occupation is not employed. Patient is and lives in [place]. Have you smoked in the past 12 months: No Caffeine use: Yes Family History Family history of sleep disordered breathing: No Allergies and Home Medications Drug allergies reviewed: Yes (penicillins and erythromycin) Home medication list reviewed: Yes (hydroxyzine, duloxetine, anastrozole) Review of Systems Cardiovascular: denies: high blood pressure, palpitations, chest pain, irregular heart rate or pulse, leg or foot swelling, have to sleep sitting up, other Respiratory: denies: shortness of breath, wheeze, sputum production, chronic cough, other Gastrointestinal: denies: heartburn, difficulty swallowing, nausea, vomitting, diarrhea, abdominal pain, other Urinary: denies: incontinence, frequency, urgency, impotence, other Neurological: reports: headaches Psychiatric: reports: anxiety Ear/Nose/Throat: reports: wisdom teeth removed Endocrine: reports: too hot or cold Musculoskeletal: reports: joint pain, mobility problems Physical Exam Vital signs obtained and entered by: Detailed physical exam was not performed to comply with the COVID-19 precau Height: 5 ft 9 in Weight: 257 lb Body Mass Index: 37.9 BMI Classification: Obese Impression and Plan IMPRESSION: 1. Possible Obstructive Sleep Apnea-Hypopnea Syndrome, as suggested by history of loud and irregular snoring, unrefreshed sleep, cognitive impairment, and daytime hypersomnolence. Narrow oropharynx and obesity are common predisposing factors for obstructive sleep apnea-hypopnea syndrome. Pathophysiology of sleep-disordered breathing was discussed. I recommend proceeding to polysomnography to confirm the diagnosis and to assess severity. If she has significant sleep disordered breathing, a manual CPAP titration study will also be performed to find the optimal treatment pressure. I informed the patient of what the sleep studies involve and after some discussion, she agreed to proceed. 2. 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 Because her wakeup time is presently at 3 pm, it is only appropriate that she falls asleep around 6 7 am. In order to move her bedtime earlier, she must first move the wakeup time. I recommend she move it an hour earlier each day with the help an alarm clock. Bright light exposure in the morning when she fir st get up in the morning can also help to reset his circadian rhythm. Plan: 1. Schedule an in-laboratory polysomnography. 2. Wake up 1 hour earlier until her wakeup time becomes 7 am. This will allow her to fall asleep at 11 pm. 3. Avoid alcohol, sedative and muscle relaxant around bedtime. 4. Attempt to lose weight. 5. Return in 1 to 2 weeks after the study to discuss results and initiate therapy. Visit Type: In Office Time Spent with Patient (minutes): 15 Provider Statement: I spent 100% of the Face to Face Visit with the patient with greater than 50% spent counseling the patient and coordination of care.
== END 2020-03-30 13:04 | disposition home or self-care (01) ==
LOC: SC 13:03
PROVIDERS: ATTEND Internal Medicine Pulmonary Disease
DX: G47.00 Insomnia, unspecified (principal); G47.10 Hypersomnia, unspecified; R06.83 Snoring; G47.8 Other sleep disorders; G47.21 Circadian rhythm sleep disorder, delayed sleep phase type; F32.9 Major depressive disorder, single episode, unspecified; E66.9 Obesity, unspecified; Z68.37 Body mass index [BMI] 37.0-37.9, adult
CPT/HCPCS: 99203; 99212

== ENCOUNTER 2020-05-04 20:25 | Outpatient (CLI) | payer OTHER | END 2020-05-04 20:26 | disposition home or self-care (01) | LOC: SC 20:25 | PROVIDERS: ATTEND Internal Medicine Pulmonary Disease | DX: G47.61 Periodic limb movement disorder (principal); G47.00 Insomnia, unspecified; G47.10 Hypersomnia, unspecified; R06.83 Snoring; G47.8 Other sleep disorders; F32.9 Major depressive disorder, single episode, unspecified | CPT/HCPCS: 95810 ==

== ENCOUNTER 2021-01-31 08:00 | Outpatient (CLI) | payer OTHER ==
[2021-01-31 12:49] LABS: CHOL/HDL RATIO 4.1 (<4.4); CHOLESTEROL 206 mg/dL; HDL CHOLESTEROL 50 mg/dL; LDL CHOLESTEROL,CALCULATED 116 mg/dL; LDL/HDL RATIO 2.3 (<4.4); TRIGLYCERIDES 202 mg/dL; VLDL CHOLESTEROL 40 mg/dL
[2021-01-31 12:58] LABS: ESTIMATED AVERAGE GLUCOSE 97 mg/dL (70-100)
[2021-02-01 12:10] LABS: HEPATITIS C ANTIBODY NON-REACTIVE (NON-REACTIVE)
== END 2021-01-31 23:59 | disposition home or self-care (01) ==
LOC: LAB.WCP 08:00
PROVIDERS: ATTEND Nurse Practitioner Family
DX: Z00.00 Encounter for general adult medical examination without abnormal findings (principal); R73.9 Hyperglycemia, unspecified; Z11.59 Encounter for screening for other viral diseases
CPT/HCPCS: 36415; 80061; 83036; 83721; 86803

== ENCOUNTER 2021-02-24 14:14 | Outpatient (CLI) | payer MEDICARE, OTHER ==
[2021-02-24] MEDS ORDERED: IOVERSOL 320 100 ML VIAL IVP ONE ×2 (14:26→16:51)
[2021-02-24] MEDS ORDERED: IOPAMIDOL-300 50 ML VIAL ONE (14:26)
--- NOTE | 2021-02-24 16:26 | CT Report ---
PROCEDURE: Abdomen/Pelvis W INDICATIONS: RIGHT GROIN PAIN, ABD PAIN CONTRAST: IV CONTRAST: Optiray 320 ml: 100 PO CONTRAST: Isovue 300 ml50 TECHNIQUE: After the administration of 100 mL contrast, 5 mm thick sections acquired from the diaphragms to the symphysis. 5 mm thick coronal and sagittal reformats were acquired. For radiation dose reduction, t he following was used: automated exposure control, adjustment of mA and/or kV according to patient s ize. COMPARISON: None. FINDINGS: Image quality: Excellent. ABDOMEN: Lung bases: Lung bases are clear. Heart size is normal. Solid organs: Liver and spleen are normal in size and enhancement. Gallbladder demonstrates prior c holecystectomy Biliary system is non dilated. Pancreas enhances normally. No adrenal nodules. Kid neys demonstrate normal size and enhancement, without hydronephrosis. Peritoneum and bowel: Bowel loops demonstrate normal wall thickness and caliber. No free fluid or a ir. Nodes and vessels: No retroperitoneal or mesenteric adenopathy by size criteria. Aorta and inferior vena cava are normal in size. Miscellaneous: No ventral hernias. A right breast implant is partially visualized and appears intac t. PELVIS: Genitourinary: Bladder wall thickness is normal. Miscellaneous: No inguinal hernias or adenopathy. Bones: No suspicious bony lesions. No vertebral body compression fractures. IMPRESSION: 1. No acute abnormality of the abdomen or pelvis. 2. No evidence of metastatic disease to the abdomen or pelvis. 3. No CT abnormality to explain right groin and abdominal pain. Reviewed by: Avery South on 02/24/2021 4:25 PM PDT Approved by: Avery South on 02/24/2021 4:25 PM PDT Station ID: [id number]
[2021-02-24] MEDS ORDERED: IOPAMIDOL-300 50 ML VIAL PO ONE (16:51)
== END 2021-02-24 14:15 | disposition home or self-care (01) ==
LOC: DI 14:14
PROVIDERS: ATTEND Surgery
DX: R10.31 Right lower quadrant pain (principal)
CPT/HCPCS: 74177; Q9967

== ENCOUNTER 2021-07-29 08:00 | Outpatient (CLI) | payer OTHER ==
[2021-07-29 13:12] LABS: THYROID STIMULATING HORMONE 2.02 uIU/mL (0.34-5.60)
== END 2021-07-29 23:59 | disposition home or self-care (01) ==
LOC: LAB.WCP 08:00
PROVIDERS: ATTEND Family Medicine
DX: N95.1 Menopausal and female climacteric states (principal)
CPT/HCPCS: 36415; 84443

== ENCOUNTER 2021-09-21 14:43 | Outpatient (CLI) | payer OTHER, MEDICAID ==
--- NOTE | 2021-09-21 19:26 | XRAY Report ---
PROCEDURE: Hip w/Pelvis 2-3V RT, x-ray INDICATIONS: GROIN PAIN, RIGHT TECHNIQUE: AP pelvis with lateral view(s) of the right hip(s). COMPARISON: None. FINDINGS: Bones: No fractures or dislocations. Pelvic ring appears intact. No suspicious bony lesions. Soft tissues: The visualized bowel gas pattern is normal. No suspicious soft tissue calcifications. Surgical clips project over the bilateral inguinal canal IMPRESSION: Surgical clips project over the bilateral inguinal canals. Underlying osseous structures unremarkable . Reviewed by: Rolando Omer MD on 09/21/2021 6:25 PM [facility] Approved by: Rolando Omer MD on 09/21/2021 6:25 PM [facility] Station ID: [id number]
== END 2021-09-21 14:44 | disposition home or self-care (01) ==
LOC: DI.N 14:43
PROVIDERS: ATTEND Family Medicine
DX: R10.31 Right lower quadrant pain (principal); Z98.890 Other specified postprocedural states

== ENCOUNTER 2021-10-05 15:01 | Outpatient (CLI) | payer MEDICARE, OTHER ==
--- NOTE | 2021-10-07 10:17 | Ultrasound Report ---
PROCEDURE: Chest INDICATIONS: UPPER LEFT CHEST WALL MASS, HX BREAST CA TECHNIQUE: Real-time scanning was performed, and a suitable site was marked by the development chemist for thoracentesis to be performed by the referring clinician. COMPARISON: CT abdomen and pelvis 02/24/2021. Bilateral mammogram 08/28/2018. FINDINGS: Patient has a history of bilateral mastectomies and breast reconstruction. Patient reports feeling th is abnormality for a few weeks. In the upper left chest superior to the breast reconstruction at the site of the palpable abnormality is a heterogeneous isoechoic/hypoechoic mass measuring 2.9 x 1.3 x 1.2 cm. The mass has a lobulated margin. No internal vascularity is detected. This is located approximately 0.9 cm deep to the skin. No enlarged left axillary lymph nodes. IMPRESSION: Avascular mass at the site of palpable abnormality in the left chest above the left breast reconstruc tion measuring 2.9 cm. Recommend ultrasound-guided biopsy for tissue diagnosis. Exam findings and recommendation were reviewed with the patient. Reviewed by: Luis Fernando Wynn MD on 10/07/2021 10:16 AM PST Approved by: Luis Fernando Wynn MD on 10/07/2021 10:16 AM PST Station ID: [id number]
== END 2021-10-05 15:02 | disposition home or self-care (01) ==
LOC: DI 15:01
PROVIDERS: ATTEND Physician Assistant
DX: R22.2 Localized swelling, mass and lump, trunk (principal); Z08 Encounter for follow-up examination after completed treatment for malignant neoplasm; Z85.3 Personal history of malignant neoplasm of breast; Z90.13 Acquired absence of bilateral breasts and nipples

== ENCOUNTER 2021-10-27 09:38 | Outpatient (CLI) | payer MEDICARE ==
[~2021-10-27 09:38] MED LIST: LIDOCAINE 1%-EPI 1:100000 20 ML MDV ONE; lidocaine 1% 20 ML MDV ONE
[2021-10-27] MEDS ORDERED: lidocaine 1% 20 ML MDV SUBQ ONE (14:38)
[2021-10-27] MEDS ORDERED: LIDOCAINE 1%-EPI 1:100000 20 ML MDV SUBQ ONE (14:39)
--- NOTE | 2021-10-31 14:11 | Ultrasound Report ---
PROCEDURE: Ultrasound-guided left chest wall biopsy. INDICATIONS: CHEST WALL MASS, HX OF BREAST CA TECHNIQUE: The indications, alternatives, benefits, risks, and complications of the procedure were e xplained to the patient. Written informed consent was obtained and placed in the chart. Continuous EKG and hemodynamic monitoring was started by trained personnel. Real-time sonography was utilized to choose the site for percutaneous left chest wall biopsy. Patient is status post bilateral mastectomy. The skin was prepped and draped in the usual sterile fashion. 1% lidocaine was infiltrated down to the site of interest. A coaxial needle was then advanced into t he site of interest under direct sonographic visualization. A biopsy apparatus was then utilized, an d core biopsies were obtained. The needle was then withdrawn; a bandage was applied to the biopsy si te. COMPARISON: FINDINGS: Biopsy site(s): Left chest wall mass. The oval hypoechoic slightly lobulated mass with indistinct ma rgins measures 2.2 x 1.1 x 2.6 cm. Needle: 13-gauge mammotome biopsy needle. Number of passes: 3 Medications: 1% lidocaine for local anaesthesia. Complications: None. IMPRESSION: Successful ultrasound-guided left chest wall biopsy, with pathology results pending. Reviewed by: Constantine Méndez MD on 10/31/2021 2:10 PM PST Approved by: Constantine Méndez MD on 10/31/2021 2:10 PM PST Station ID: [id number]
== END 2021-10-27 09:39 | disposition home or self-care (01) ==
LOC: DI 09:38
PROVIDERS: ATTEND Internal Medicine Hematology & Oncology
DX: N64.1 Fat necrosis of breast (principal)
CPT/HCPCS: 20206

== ENCOUNTER 2022-01-17 14:28 | Outpatient (CLI) | payer MEDICARE ==
--- NOTE | 2022-01-17 16:37 | DEXA Report ---
PROCEDURE: Dexa Spine and/or Hip INDICATIONS: LEFT CHEST WALL MASS, BREAST CA TECHNIQUE: Dual energy x-ray absorptiometry (DXA) was performed on a [employer]. Regions measur ed are the AP Spine, femoral neck, and if needed forearm. COMPARISON: None. FINDINGS: Lumbar Spine: Bone Mineral Density 1.035 g/cm/cm,T score -1.2, osteopenia Left Hip: Bone Mineral Density 0.827 g/cm/cm,T score -1.4, osteopenia Left Femoral Neck: Bone Mineral Density 0.773 g/cm/cm, T score -1.9, osteopenia Impression: Osteopenia. Patients with diagnosis of osteoporosis or osteopenia should have regular bone mineral density assess ment. For those eligible for Medicare, routine testing is allowed once every 2 years. Testing frequ ency can be increased for patients who have rapidly progressing disease or for those who are receivin g medical therapy to restore bone mass. Reviewed by: Yamil Fry MD on 01/17/2022 4:36 PM PDT Approved by: Yamil Fry MD on 01/17/2022 4:36 PM PDT Station ID: [id number]
--- NOTE | 2022-01-18 09:40 | Ultrasound Report ---
PROCEDURE: Chest ultrasound. INDICATIONS: LEFT CHEST WALL MASS, BREAST CA TECHNIQUE: Real-time scanning was performed, and then documentation of left chest wall. COMPARISON: None. FINDINGS: 5.3 x 1.9 x 6.5 cm fluid collection noted at the area of clinical concern at the surgical site in the left chest wall. 5 likely represents postsurgical hematoma/seroma. IMPRESSION: Probable 5.3 x 1.9 x 6.5 cm postbiopsy left chest wall hematoma/seroma. Reviewed by: Hui Oneill MD, PhD on 01/18/2022 9:39 AM PDT Approved by: Hui Oneill MD, PhD on 01/18/2022 9:39 AM PDT Station ID: [id number]
== END 2022-01-17 14:29 | disposition home or self-care (01) ==
LOC: DI 14:28
PROVIDERS: ATTEND Physician Assistant
DX: Z79.899 Other long term (current) drug therapy (principal); R22.2 Localized swelling, mass and lump, trunk; M85.89 Other specified disorders of bone density and structure, multiple sites

== ENCOUNTER 2022-10-09 11:03 | Outpatient (CLI) | payer MEDICARE | END 2022-10-09 11:04 | disposition home or self-care (01) | LOC: LAB.N 11:03 | PROVIDERS: ATTEND Internal Medicine Hematology & Oncology | DX: Z53.9 Procedure and treatment not carried out, unspecified reason (principal) ==

== ENCOUNTER 2022-11-27 14:38 | Outpatient (CLI) | payer MEDICARE ==
--- NOTE | 2022-11-27 15:20 | XRAY Report ---
PROCEDURE: Ankle 3 View RT INDICATIONS: RIGHT ANKLE PAIN TECHNIQUE: 3 views of the ankle were acquired. COMPARISON: 12/19/2019 FINDINGS: Bones: There is hardware of ORIF of trimalleolar fracture present remotely. Hardware elements are in tact. Ankle mortise is intact. No acute fracture. Minimal degenerative changes at the medial and late ral malleolus. No fractures or dislocations. Ankle mortise is normally aligned. No suspicious bony lesions. Soft tissues: No tibiotalar joint effusion. Achilles tendon appears normal. IMPRESSION: 1. Intact right ankle hardware. 2. Mild degenerative change at the lateral and medial malleoli.. Reviewed by: Maude Ko MD on 11/27/2022 3:19 PM PDT Approved by: Maude Ko MD on 11/27/2022 3:19 PM PDT Station ID: [id number]
== END 2022-11-27 14:39 | disposition home or self-care (01) ==
LOC: DI.WOS 14:38
PROVIDERS: ATTEND Orthopaedic Surgery
DX: M19.071 Primary osteoarthritis, right ankle and foot (principal)

== ENCOUNTER 2022-12-06 09:37 | Day surgery (SDC) | payer MEDICARE ==
[2022-12-06] MEDS ORDERED: ACETAMINOPHEN 500 MG TABLET PO ONE (09:46)
[2022-12-06] MEDS ORDERED: CEFAZOLIN 2G/50ML 0.9% NS 2 GM/50 ML BAG IV ONE (09:46)
[2022-12-06] MEDS ORDERED: BUPIVACAINE 0.25% PF 30 ML VIAL ONE (09:56)
[2022-12-06] MEDS ORDERED: LIDOCAINE MPF 2%-EPI 1:200000 20 ML VIAL ONE (09:56)
[2022-12-06] MEDS ORDERED: LACTATED RINGERS 1,000 ML IV ONE ×2 (10:19→12:04)
[2022-12-06] MEDS ORDERED: fentaNYL 100 MCG/2 ML VIAL IVP PRN (11:20)
[2022-12-06] MEDS ORDERED: ONDANSETRON 4 MG/2 ML VIAL IVP PRN (11:20)
[2022-12-06] MEDS ORDERED: NALOXONE 0.4 MG/ML VIAL IVP PRN (11:20)
[2022-12-06] MEDS ORDERED: ATROPINE ABBOJECT 1 MG/10 ML SYRINGE IVP PRN (11:20)
[2022-12-06] MEDS ORDERED: MORPHINE 2 MG/ML CARPUJECT IVP PRN (11:20)
[2022-12-06] MEDS ORDERED: METOCLOPRAMIDE 10 MG/2 ML VIAL IVP PRN (11:20)
[2022-12-06] MEDS ORDERED: HYDROmorphone 0.5 MG/0.5 ML SYRINGE IVP PRN (11:20)
[2022-12-06] MEDS ORDERED: ePHEDrine 50 MG/ML VIAL IVP PRN (11:20)
--- NOTE | 2022-12-06 11:20 | ANESTHESIA ---
Pre-Anesthesia VS, & Labs - Diagnosis right ankle hardware post fracture - Procedure removal hardware right ankle Vital Signs: Temp Pulse Resp BP Pulse Ox O2 Flow Rate 36.6 C 73 17 125/82 H 99 12/06/22 10:00 12/06/22 10:00 12/06/22 10:00 12/06/22 10:00 12/06/22 10:00 Height: 5 ft 9 in Weight (kg): 109 kg Body Mass Index: 35.4 BMI Classification: Obese - NPO >8 hours - Is Patient ?: No Home Medications and Allergies Home Medications: Ambulatory Orders Gabapentin [Gralise] 300 mg PO QPM 12/04/22 traZODone [Desyrel] 50 mg PO HS PRN 12/04/22 DULoxetine [Cymbalta] 60 mg PO DAILY 12/26/18 Anastrozole 1 tab PO DAILY 01/21/19 Gabapentin [Gralise] 300 mg PO QPM 12/04/22 traZODone [Desyrel] 50 mg PO HS PRN 12/04/22 Allergies/Adverse Reactions: Allergies Allergy/AdvReac Type Severity Reaction Status Date / Time erythromycin base Allergy Hives Verified 01/18/21 13:37 Penicillins Allergy Hives Verified 01/18/21 13:37 Anes History & Medical History - Anesthetic History Anesthesia Complications: reports: No previous complications - Medical History Cardiovascular: reports: None Pulmonary: reports: None Gastrointestinal: reports: None Urinary: reports: None Neuro: reports: None Musculoskeletal: reports: Osteoarthritis Endocrine/Autoimmune: reports: None, HyPOthyroidism Blood Disorders: reports: None Skin: reports: None Smoking Status: Never smoker - Surgical History General: reports: Cholecystectomy Gynecologic: reports: section Orthopedic: reports: Arthroscopic surgery Exam General: Alert, Oriented x3 Dental: WNL Mouth Opening: Greater than 4 Fingerbreadths Neck Mobility: Normal Mallampati classification: II Thyromental Distance: greater than 6 cm Respiratory: Lungs clear Cardiovascular: Regular rate Plan Anesthesia Type: General Consent for Procedure(s) Verified and Reviewed: Yes Code Status: Attempt Resuscitation ASA classification: 2-Mild systemic disease Is this case an emergency?: No
[2022-12-06] MEDS ORDERED: MIDAZOLAM 2 MG/2 ML VIAL ONE (11:27)
[2022-12-06] MEDS ORDERED: PROPOFOL 200 MG/20 ML VIAL IVP ONE (11:29)
[2022-12-06] MEDS ORDERED: BUPIVACAINE 0.25% PF 30 ML VIAL SUBQ ONE (11:57)
[2022-12-06] MEDS ORDERED: LIDOCAINE 2%-EPI 1:100000 20 ML MDV SUBQ ONE (11:57)
--- NOTE | 2022-12-06 11:57 | OPERATIVE REPORT ---
Operative Report - General Procedure Date: 12/06/22 Planned Procedure: Removal of internal fixation lateral talus right ankle Pre-Op Diagnosis: Pain over internal fixation ladder malleolus right ankle, mechanical compli Procedure Performed: Removal of cortical screw lateral malleolus right ankle Post Op Diagnosis: Same as preoperative diagnosis - Procedure Note Primary Surgeon: Donovan Francis MD Secondary Surgeon: Donya SALINAS Anesthesia Provider: Sheryl Constantino CRNA Anesthesia Technique: Local, Moderate sedation Estimated Blood Loss (mL): 1 Indications: This is a 57-year-old woman with previous right ankle fracture. The lateral malleolus was reduced and fixed with a plate and screws. One of the angled screws in the very tip of the lateral malleolus was prominent and been bothering her for a long time. Her fracture has fully healed to the right ankle. She is ambulatory and doing quite well. Her radiographs show good alignment of the right ankle mortise and internal fixation but there is prominence of the screw head over the lateral malleolus both radiographically and clinically. She strongly desired this to be removed, prominent screw laterally in this right ankle. Shared decision making performed. Informed consent signed at office. Findings: There is no abnormalities with the screw. The screw head was prominent to the lateral malleolus and was removed relatively easily. Complications: None - Other Other Information/Narrative: The patient was brought to the operating room, given sedation. She was placed in a supine position with a gel bag meet the right buttock. The right foot and ankle were prepped and draped in sterile manner in the usual fashion. A timeout procedure was performed by the entire operating room team and all were in agreement. A 1 cm incision was made over the prominent screw head. Skin hooks were inserted. There was some adventitial bursa and fascia overlying the screw head which was incised. The screw head was exposed and removed with a Synthes 3.5 mm screwdriver. The screw came out readily, no abnormalities noted. There is no infection. The right ankle is stable. The wound was irrigated and closed with 2 simple 4-0 nylon interrupted sutures, Xeroform, dry sterile dressing and Carson wrap. Patient tolerated procedure well. A physician underwriting assistant was medically necessary to help with prepping and draping, positioning, protection of vital structures, assistance during the procedure including wound closure, dressing and/or splinting.
[2022-12-06] MEDS ORDERED: LACTATED RINGERS 1,000 ML IV SCH (12:00)
[2022-12-06] MEDS ORDERED: CELECOXIB 100 MG CAPSULE PO PRN (12:03)
[2022-12-06] MEDS ORDERED: ACETAMINOPHEN 500 MG TABLET PO PRN (12:03)
[2022-12-06] MEDS ORDERED: ONDANSETRON ODT 4 MG TABLET TL PRN (12:03)
[2022-12-06] MEDS ORDERED: oxyCODONE 5 MG TABLET PO PRN (12:03)
[2022-12-06] MEDS ORDERED: KETOROLAC 30 MG/ML VIAL IVP PRN (12:10)
--- NOTE | 2022-12-06 12:13 | ANESTHESIA POST OP EVALUATION ---
Anesthesia Post Eval - Post Anesthesia Eval Vitals: Last Vital Signs Temp 36.5 C 12/06/22 12:02 Pulse 74 12/06/22 12:02 Resp 15 12/06/22 12:02 BP 123/71 12/06/22 12:02 Pulse Ox 97 12/06/22 12:02 O2 Flow Rate CV Function Including HR & BP: Stable Pain Control: Satisfactory Nausea & Vomiting: Negative Mental Status: Baseline Respiratory Status: Airway Patent Hydration Status: Satisfactory Anesthesia Complications: None
[2022-12-06] MEDS ORDERED: oxyCODONE 5 MG TABLET ONE (12:31)
[2022-12-06 12:50] VITALS: BP 134/72
--- NOTE | 2022-12-06 14:48 | XRAY Report ---
PROCEDURE: Ankle 2 View RT INDICATIONS: post operative imaging TECHNIQUE: 2 views of the ankle were acquired. COMPARISON: 11/27/2022 FINDINGS: Bones: Prior ankle ORIF, without hardware consultation. No displaced fracture. Ankle mortise is intac t. Soft tissues: No tibiotalar joint effusion. Achilles tendon appears normal. IMPRESSION: Prior ankle ORIF, without hardware complication. Reviewed by: Juan Pablo Fuentes on 12/06/2022 2:46 PM PDT Approved by: Juan Pablo Fuentes on 12/06/2022 2:46 PM PDT Station ID: [id number]
== END 2022-12-06 09:38 | disposition home or self-care (01) ==
LOC: SDS 09:37
PROVIDERS: ATTEND Orthopaedic Surgery
DX: T84.84XA Pain due to internal orthopedic prosthetic devices, implants and grafts, initial encounter (principal); E66.9 Obesity, unspecified; Z68.35 Body mass index [BMI] 35.0-35.9, adult
CPT/HCPCS: 20680; 73600; A9270; J0690; J7120

== ENCOUNTER 2023-12-05 11:06 | Outpatient (CLI) | payer MEDICARE ==
[2023-12-05 11:23] LABS: BASOPHILS % (AUTO) 0.7 %; EOSINOPHILS # (AUTO) 0.1 10^3/uL (0.0-0.7); EOSINOPHILS % (AUTO) 1.4 %; HCT - HEMATOCRIT 41.5 % (37.0-47.0); HGB - HEMOGLOBIN 13.9 g/dL (12.0-16.0); LYMPHOCYTES # (AUTO) 1.3 10^3/uL (1.5-3.5); LYMPHOCYTES % (AUTO) 28.9 %; MEAN CORPUSCULAR HGB CONC 33.5 g/dL (32.0-36.0); MEAN CORPUSCULAR VOLUME 92.6 fL (81.0-99.0); MEAN PLATELET VOLUME 9.5 fL (7.9-10.8); MONOCYTES # (AUTO) 0.3 10^3/uL (0.0-1.0); MONOCYTES % (AUTO) 5.6 %; NEUTROPHILS # (AUTO) 2.8 10^3/uL (1.5-6.6); NEUTROPHILS % (AUTO) 63.4 %; PLT - PLATELET COUNT 231 10^3/uL (130-450); RED BLOOD COUNT 4.48 10^6/uL (4.20-5.40); RED CELL DISTRIBUTION WIDTH 12.6 % (12.0-15.0); WHITE BLOOD COUNT 4.4 x10^3/uL (4.8-10.8)
[2023-12-05 11:43] LABS: CALCIUM 9.7 mg/dL (8.5-10.3); CREATININE 0.8 mg/dL (0.6-1.3); POTASSIUM 3.5 mmol/L (3.5-4.5)
[2023-12-05 11:54] LABS: ESTIMATED AVERAGE GLUCOSE 85 mg/dL (70-100); HEMOGLOBIN A1c% 4.6 % (4.27-6.07)
== END 2023-12-05 11:07 | disposition home or self-care (01) ==
LOC: LAB 11:06
PROVIDERS: ATTEND Orthopaedic Surgery Adult Reconstructive Orthopaedic Surgery
DX: Z01.818 Encounter for other preprocedural examination (principal); R77.0 Abnormality of albumin; E55.9 Vitamin D deficiency, unspecified; R73.9 Hyperglycemia, unspecified
CPT/HCPCS: 36415; 80048; 82306; 83036; 84134; 85025

== ENCOUNTER 2024-02-05 08:01 | Outpatient (CLI) | payer MEDICARE ==
[2024-02-05 08:20] LABS: BASOPHILS % (AUTO) 0.7 %; EOSINOPHILS # (AUTO) 0.1 10^3/uL (0.0-0.7); HCT - HEMATOCRIT 34.1 % (37.0-47.0); HGB - HEMOGLOBIN 11.3 g/dL (12.0-16.0); LYMPHOCYTES # (AUTO) 1.2 10^3/uL (1.5-3.5); LYMPHOCYTES % (AUTO) 20.1 %; MEAN CORPUSCULAR HGB CONC 33.1 g/dL (32.0-36.0); MEAN CORPUSCULAR VOLUME 93.7 fL (81.0-99.0); MEAN PLATELET VOLUME 8.9 fL (7.9-10.8); MONOCYTES # (AUTO) 0.3 10^3/uL (0.0-1.0); MONOCYTES % (AUTO) 5.6 %; NEUTROPHILS # (AUTO) 4.2 10^3/uL (1.5-6.6); NEUTROPHILS % (AUTO) 72.4 %; PLT - PLATELET COUNT 331 10^3/uL (130-450); RED BLOOD COUNT 3.64 10^6/uL (4.20-5.40); RED CELL DISTRIBUTION WIDTH 12.8 % (12.0-15.0); WHITE BLOOD COUNT 5.7 x10^3/uL (4.8-10.8)
[2024-02-05 08:31] LABS: ALBUMIN 4.1 g/dL (3.2-5.5); ALBUMIN/GLOBULIN RATIO 1.2 (1.0-2.2); ALKALINE PHOSPHATASE 90 IU/L (42-121); ALT ALANINE AMINOTRANSFERASE 18 IU/L (10-60); AST ASPARTATE AMINOTRANSFERASE 16 IU/L (10-42); BILIRUBIN,TOTAL 0.7 mg/dL (0.2-1.0); BUN - BLOOD UREA NITROGEN 22 mg/dL (6-20); CALCIUM 9.3 mg/dL (8.5-10.3); CARBON DIOXIDE - CO2 30 mmol/L (21-32); CHLORIDE 102 mmol/L (101-111); CHOL/HDL RATIO 3.6 (<4.4); CHOLESTEROL 182 mg/dL; CREATININE 0.9 mg/dL (0.6-1.3); GFR - MDRD 65 (>89); GLUCOSE 110 mg/dL (74-104); HDL CHOLESTEROL 50 mg/dL; LDL CHOLESTEROL,CALCULATED 107 mg/dL; LDL/HDL RATIO 2.1 (<4.4); SODIUM 138 mmol/L (135-145); TOTAL PROTEIN 7.5 g/dL (6.4-8.9); TRIGLYCERIDES 126 mg/dL (48-352); VLDL CHOLESTEROL 25 mg/dL
[2024-02-05 12:22] LABS: ESTIMATED AVERAGE GLUCOSE 91 mg/dL (70-100); HEMOGLOBIN A1c% 4.8 % (4.27-6.07)
== END 2024-02-05 08:02 | disposition home or self-care (01) ==
LOC: LAB 08:01
PROVIDERS: ATTEND Physician Assistant
DX: Z00.00 Encounter for general adult medical examination without abnormal findings (principal); E78.5 Hyperlipidemia, unspecified; R73.9 Hyperglycemia, unspecified
CPT/HCPCS: 36415; 80053; 80061; 83036; 83721; 85025